=== PATIENT | female | born 1985 | race Caucasian/White ===

== ENCOUNTER 2016-11-02 18:37 | Emergency (ER) | payer OTHER ==
[~2016-11-02] VITALS: Ht 160 cm; Wt 68.2 kg
[2016-11-02 18:40] VITALS: Ht 160 cm; Wt 68.2 kg
[2016-11-02] MEDS ORDERED: morphine 2 MG INJ IV STA (19:04)
[2016-11-02] MEDS ORDERED: ONDANSETRON 4 MG INJ IV STA (19:04)
[2016-11-02] MEDS ORDERED: SOD CHLORIDE 0.9% 500 ML IV STA (19:04)
[2016-11-02 19:56] LABS: ADD SCAN DIFF NO
--- NOTE | 2016-11-02 20:00 | ERA ---
ER Documentation Chief Complaint Date/Time DATE: 11/02/16 TIME: 19:56 Chief Complaint CHEST PAIN SUBSTERNAL NON-RADIATING INCREASES DURING MOVEMENT HPI This is a very pleasant 30-year-old female otherwise healthy [employer] who presents with chest pain. She states that she has had URI type symptoms over the past week that have been improving, she works 12 hour overnight shifts. This evening when on her way to work she started to describe chest pain that started in the central aspect of her chest and spread across her chest with associated diaphoresis and a sensation of near syncope. She described mild pleuritic component during this timeframe. She states dramatic improvement of symptoms with almost clear resolution. No mid back pain. No paresthesias to the extremities. She denies any oral contraceptives, recent immobilization or surgery or long travel. No family history of cardiac disease. The patient exercises regularly and does not have syncope or chest pain. ROS All systems reviewed and are negative except as per history of present illness. Medications Home Meds Active Scripts Ibuprofen* (Motrin*) 800 Mg Tab, 800 MG PO Q6H Y for PAIN AND OR ELEVATED TEMP, #30 TAB Prov:JIMMIE ANNA MD 11/02/16 Allergies Allergies: Coded Allergies: No Known Allergy (Unverified , 11/02/16) PMhx/Soc Medical and Surgical Hx: pt denies Medical Hx, pt denies Surgical Hx History of Surgery: No Anesthesia Reaction: No Hx Neurological Disorder: No Hx Respiratory Disorders: No Hx Cardiac Disorders: No Hx Psychiatric Problems: No Hx Miscellaneous Medical Probl: No Smoking Status: Never smoker FmHx Family History: No coronary disease, No diabetes Physical Exam Vitals Vital Signs Date Time Temp Pulse Resp B/P Pulse Ox O2 Delivery O2 Flow Rate FiO2 11/02/16 20:03 62 20 107/75 99 Room Air 11/02/16 19:13 Bag Valve Mask 11/02/16 18:40 97.7 64 12 107/63 100 Physical Exam General: Well developed, well nourished, no acute distress Head: Normocephalic, atraumatic. Eyes: Pupils equally reactive, EOM intact ENT: Moist mucous membranes Neck: Supple, no lymphadenopathy Respiratory: Lungs clear bilaterally, no distress Cardiovascular: RRR, no murmurs, rubs, or gallops Abdominal: Soft, non-tender, non-distended, no peritoneal signs : Deferred MSK: No edema, no unilateral swelling, 5/5 strength, no pulse deficits Neurologic: Alert and oriented, moving all extremities, normal speech, no focal weakness, no cerebellar signs Skin: No rash Psych: Normal mood Result Diagram: 11/02/16189911/02/161899 Results 24 hrs Laboratory Tests Test 11/02/16 19:00 White Blood Count 5.610^3/ul Red Blood Count 4.2710^6/ul Hemoglobin 13.6g/dl Hematocrit 40.1% Mean Corpuscular Volume 93.9fl Mean Corpuscular Hemoglobin 31.9pg Mean Corpuscular Hemoglobin Concent 33.9g/dl Red Cell Distribution Width 12.1% Platelet Count 39399^3/UL Mean Platelet Volume 10.5fl Neutrophils % 63.3% Lymphocytes % 28.1% Monocytes % 5.9% Eosinophils % 1.8% Basophils % 0.4% Nucleated Red Blood Cells % 0.0/100WBC Neutrophils # 3.510^3/ul Lymphocytes # 1.610^3/ul Monocytes # 0.310^3/ul Eosinophils # 0.110^3/ul Basophils # 0.010^3/ul Nucleated Red Blood Cells # 0.010^3/ul Prothrombin Time 13.3Sec Prothrombin Time Ratio 1.0 INR International Normalized Ratio 1.00 Activated Partial Thromboplast Time 22.9Sec D-Dimer 419.33ng/ml D-Dimer Comment Sodium Level 140mmol/L Potassium Level 3.7mmol/L Chloride Level 102mmol/L Carbon Dioxide Level 26mmol/L Anion Gap 16 Blood Urea Nitrogen 13mg/dl Creatinine 0.77mg/dl Glucose Level 90mg/dl Calcium Level 9.3mg/dl Troponin I < 0.012ng/ml Serum HCG, Qualitative NEGATIVE Current Medications Medications (Trade) Dose Ordered Sig/Denisse Route PRN Reason Start Time Stop Time Status Last Admin Dose Admin Sodium Chloride (NS) 500 ml @ 500 mls/hr Q1H STAT IV 11/02/16 19:04 11/02/16 20:03 DC 11/02/16 19:32 Morphine Sulfate (morphine) 2 mg ONCE STAT IV 11/02/16 19:04 11/02/16 19:06 DC Ondansetron HCl (Zofran Inj) 4 mg ONCE STAT IV 11/02/16 19:04 11/02/16 19:06 DC Ketorolac Tromethamine (Toradol) 15 mg ONCE STAT IV 11/02/16 20:31 11/02/16 20:32 DC Procedures/MDM EKG, MONITORS, & DIAGNOSTIC IMAGING: EKG: I reviewed and interpreted a 12-lead EKG. Rhythm: Normal sinus rhythm Ectopy: None Intervals: No abnormalities ST segments: No elevations or depressions T waves: No contiguous inversions Chest x-ray: I reviewed and interpreted a 1 view of the chest Mediastinum: No enlargement Cardiac silhouette: No cardiomegaly Airspace: Clear lung reeves bilaterally without evidence of pneumothorax Bones: No evidence of fracture LAB INTERPRETATION: Negative troponin, negative d-dimer MEDICAL DECISION MAKING: The patient's history, physical exam and clinical presentation is more consistent with likely pleurisy versus chest wall pain with associated vasovagal near syncope. The patient does not have any cardiac risk factors. Her symptoms are not consistent with the dissection, she has no risk factors for dissection. She has no significant risk factors for pulmonary embolism. The patient's symptoms are dramatically improved. Given that the patient did have a pleuritic component with near syncope a d-dimer will be sent even despite very low clinical concern for pulmonary embolism. Based on the patient's clinical exam and history and risk factors, I have a much lower clinical concern for pulmonary embolism, acute aortic dissection, pneumothorax, pneumonia, cardiac tamponade HEART Score: 0 MACE Rate: Less than 1.7% Shared Decision Making: We had a conversation regarding risk stratification, MACE rate, and the risks, benefits, alternatives of disposition planning options. Disposition planning: Given that the patient did have diaphoresis and chest pain it would be reasonable to check a troponin. The patient does meet low risk criteria and I do not believe that inpatient hospitalization is absolutely necessary. Patient prefers discharge. ER COURSE: The patient continues to be well-appearing, she refused morphine. Toradol provided. The patient's chest x-ray shows a normal mediastinum. Her d-dimer is negative, troponin is negative. I had a second shared decision making conversation with the patient. We discussed serial troponins, inpatient hospitalization. The patient verbalizes desire to go home. She states understanding of risk profile. A single troponin seems reasonable in this case. The patient is agreeable. The patient was advised to follow-up with primary care physician and return for any exertional symptoms. A note for work was provided. Patient symptoms are improved. I kept the patient and/or family informed of laboratory and diagnostic imaging results throughout the emergency room course. DISPOSITION PLAN: We discussed follow up with the patient's primary care doctor within 24 to 48 hours as needed. We also discussed return to the emergency room for worsening symptoms or worsening condition. Outpatient referral: Primary care Discharge Medications: Motrin Departure Diagnosis: Primary Impression: Pleurisy Additional Impression: Chest pain Qualified Code: R07.9 - Chest pain, unspecified type Condition: Stable JIMMIE ANNA MD November 02, 2016 20:00
[2016-11-02 20:03] LABS: BASOPHILS % 0.4 % (0.0-2.0); EOSINOPHILS # 0.1 10^3/ul (0.0-0.5); EOSINOPHILS % 1.8 % (0.0-7.0); HEMATOCRIT 40.1 % (37.0-47.0); HEMOGLOBIN 13.6 g/dl (12.0-16.0); LYMPHOCYTES # 1.6 10^3/ul (0.8-2.9); LYMPHOCYTES % 28.1 % (15.0-51.0); MEAN CORPUSCULAR HEMOGLOBIN 31.9 pg (29.0-33.0); MEAN CORPUSCULAR HGB CONC 33.9 g/dl (32.0-37.0); MEAN CORPUSCULAR VOLUME 93.9 fl (82.0-101.0); MEAN PLATELET VOLUME 10.5 fl (7.4-10.4); MONOCYTE # 0.3 10^3/ul (0.3-0.9); MONOCYTES % 5.9 % (0.0-11.0); NEUTROPHIL # 3.5 10^3/ul (1.6-7.5); NEUTROPHILS % 63.3 % (39.0-77.0); PLATELET COUNT 224 10^3/UL (140-415); RED BLOOD COUNT 4.27 10^6/ul (4.20-5.40); RED CELL DISTRIBUTION WIDTH 12.1 % (11.5-14.5); WHITE BLOOD COUNT 5.6 10^3/ul (4.8-10.8)
[2016-11-02 20:19] LABS: D-DIMER 419.33 ng/ml (<460)
[2016-11-02 20:20] LABS: CHLORIDE 102 mmol/L (97-110); SODIUM 140 mmol/L (135-144)
[2016-11-02 20:21] LABS: POTASSIUM 3.7 mmol/L (3.5-5.1)
[2016-11-02 20:23] LABS: CREATININE 0.77 mg/dl (0.44-1.00)
[2016-11-02 20:24] LABS: ANION GAP 16 (8-16); BLOOD UREA NITROGEN 13 mg/dl (7-20); CALCIUM 9.3 mg/dl (8.4-10.2); CARBON DIOXIDE 26 mmol/L (21-31); GLUCOSE 90 mg/dl (70-220)
[2016-11-02 20:30] VITALS: BP 105/68; PULSE 63; RESP 14
--- NOTE | 2016-11-02 20:30 | RADRPT ---
PROCEDURE: Portable chest x-ray. CLINICAL INDICATION: Chest pain. TECHNIQUE: Portable AP view of the chest. COMPARISON: None. FINDINGS: No pulmonary edema or conolidation is identified. The cardiac silhouette is magnified. No pleural effusion is seen. There is no pneumothorax. IMPRESSION: 1. No evidence of acute cardiopulmonary disease. RPTAT: HTAR .Earnest Sandoval MD, MD Date Time Electronically viewed and signed by .Earnest Sandoval MD, on 11/02/2016 20:30 .R/
[2016-11-02] MEDS ORDERED: KETOROLAC 15 MG INJ IV STA (20:31)
[2016-11-02 20:36] LABS: PARTIAL THROMBOPLASTIN TIME 22.9 Sec (25.0-35.0); PROTIME 13.3 Sec (12.2-14.2)
[2016-11-02] MEDS ORDERED: IBUP800T25 PO (20:40)
[2016-11-02 20:46] LABS: TROPONIN-I < 0.012 ng/ml (0.00-0.12)
== END 2016-11-02 21:05 | disposition home or self-care (01) ==
LOC: E/R 18:37
DX: R09.1 Pleurisy (principal); R07.2 Precordial pain; R40.2142 Coma scale, eyes open, spontaneous, at arrival to emergency department; R40.2252 Coma scale, best verbal response, oriented, at arrival to emergency department; R40.2362 Coma scale, best motor response, obeys commands, at arrival to emergency department
CPT/HCPCS: 36415; 71010; 80048; 84484; 84703; 85025; 85378; 85610; 85730; 96360; 99285; J7040